=== PATIENT | female | born 2000 ===

== ENCOUNTER → 2022-12-12 | Outpatient (CLI) | payer SELFPAY | END | disposition home or self-care (01) | LOC: LAB SHORT 16:15 | DX: R30.0 Dysuria (principal) | CPT/HCPCS: 87077; 87086; 87186 ==

== ENCOUNTER → 2025-02-19 | Outpatient (CLI) | payer BC, OTHER ==
[2025-02-22 18:19] LABS: C. TRACHOMATIS BY TMA,THINPREP Negative (Negative); N. GONORRHOEAE BY TMA,THINPREP Negative (Negative); SPECIMEN SOURCE Cervical
== END | disposition home or self-care (01) ==
LOC: LAB 17:21 → LAB SHORT 17:21
PROVIDERS: Family Medicine
DX: Z01.419 Encounter for gynecological examination (general) (routine) without abnormal findings (principal)
CPT/HCPCS: 87491; 87591; G0123

== ENCOUNTER 2025-04-21 18:48 | Emergency (ER) | payer BC, OTHER ==
[~2025-04-21] VITALS: Ht 152.4 cm; Wt 68.0 kg
[2025-04-21 18:58] VITALS: BP 129/82
[2025-04-21] MEDS ORDERED: Ondansetron 4 MG SoluTab SL ONE (19:00)
== END 2025-04-21 19:56 | disposition home or self-care (01) ==
LOC: ER 18:48 → BC 19:51 → ER 19:56
DX: O99.891 Other specified diseases and conditions complicating pregnancy (principal); R51.9 Headache, unspecified; R10.9 Unspecified abdominal pain; R11.0 Nausea; Z3A.29 29 weeks gestation of pregnancy
CPT/HCPCS: 99283

== ENCOUNTER → 2025-06-10 | Outpatient (CLI) | payer BC, OTHER | END | disposition home or self-care (01) | LOC: LAB SHORT 11:33 → LAB 11:33 | DX: Z34.03 Encounter for supervision of normal first pregnancy, third trimester (principal) | CPT/HCPCS: 87081; 87150 ==

== ENCOUNTER 2025-07-12 19:41 | Inpatient (IN) | payer BC, OTHER ==
[~2025-07-12] VITALS: Ht 152.4 cm; Wt 75.0 kg
[2025-07-12 20:14] VITALS: BP 133/91
[2025-07-12] MEDS ORDERED: FentaNYL 2mcg/ml-Bup 0.1% Epd 250 ML EPI PRN (21:25)
[2025-07-12] MEDS ORDERED: Oxytocin 10 Unit / ML Vial IM PRN (21:25)
[2025-07-12] MEDS ORDERED: Ondansetron HCl 2 MG / ML 2ML Vial IV PRN (21:25)
[2025-07-12] MEDS ORDERED: Tranexamic Acid 100 ML IV SCH (21:25)
[2025-07-12] MEDS ORDERED: ePHEDrine Sulfate 50 MG/ML 1ML Injection XX PRN (21:25)
[2025-07-12] MEDS ORDERED: Carboprost Tromethamine 250 MCG/ML 1ML Amp IM PRN (21:25)
[2025-07-12] MEDS ORDERED: Methylergonovine Maleate 0.2MG / ML 1ML Amp IM PRN (21:25)
[2025-07-12] MEDS ORDERED: OXYTOCIN/RINGER'S LACTATE 500 ML IV SCH (21:25)
[2025-07-12] MEDS ORDERED: OXYTOCIN/RINGER'S LACTATE 500 ML IV PRN (21:25)
[2025-07-12] MEDS ORDERED: FentaNYL Citrate 50 MCG/ML 2 ML Injection IV PRN (21:30)
[2025-07-12 21:46] LABS: BASOPHILS ABSOLUTE AUTO 0.02 K/mm3 (0.00-0.23); BASOPHILS PERCENT AUTO 0 % (0-2); EOSINOPHILS ABSOLUTE AUTO 0.03 K/mm3 (0.00-0.68); EOSINOPHILS PERCENT AUTO 0 % (0-6); Hematocrit 34.8 % (33.0-51.0); Hemoglobin 11.2 g/dL (11.5-16.0); IMMATURE GRAN ABSOLUTE AUTO 0.03 K/mm3 (0.00-0.10); IMMATURE GRAN PERCENT AUTO 0 % (0-1); LYMPHOCYTES ABSOLUTE AUTO 2.55 K/mm3 (0.84-5.20); LYMPHOCYTES PERCENT AUTO 21 % (21-46); MONOCYTES ABSOLUTE AUTO 1.13 K/mm3 (0.16-1.47); MONOCYTES PERCENT AUTO 10 % (4-13); Mean Corpuscular HGB Conc 32.2 g/dL (31.5-36.5); Mean Corpuscular Volume 86 fL (80-100); NEUTROPHILS ABSOLUTE AUTO 8.15 K/mm3 (1.96-9.15); NEUTROPHILS PERCENT AUTO 68 % (41-73); NRBC ABSOLUTE 0.00 K/mm3 (0.00-0.02); NRBC Auto 0.0 /100 WBC (0.0-0.2); Platelet Count 232 K/mm3 (150-400); RDW Coefficient Variation 13.3 % (11.7-14.2); RDW Standard Deviation 41.5 fL (35.1-46.3)
[2025-07-12] MEDS ORDERED: PRENATAL TABLE1 EAC2 PO (21:50)
[2025-07-12 21:53] VITALS: BP 138/99
[2025-07-12 21:55] VITALS: BP 150/100
[2025-07-12 22:10] VITALS: BP 151/109
[2025-07-13] VITALS (50 sets, daily range): BP systolic 117–176; BP diastolic 63–111
[2025-07-14] VITALS (52 sets, daily range): BP systolic 103–219; BP diastolic 63–122
--- NOTE | 2025-07-14 09:04 | NUR ---
07/13/25 1800 Rns went in with Dr Lima to do cervical exam, pt still very apprehensive nad uncomfortable yet agrees to let MD check her, after exam, this RN noted white mucusy discharge that may have had some yeast in it, I asked Dr Lima if that was yeast and she said "No, its just normal vaginal mucus"
--- NOTE | 2025-07-14 09:07 | NUR ---
07/14/25 0830 Kelly Smith CNM in to examine patient and do VE with abdoulaye AROM, pt was agreeable and yet still noticeably uncomfortable with exam, noted to have yeast on her glove and asked pt if she had any symptoms of yeast, which the patient denied. Kelly said that after the patient delivers, she will be sure to order treatment for the yeast infection.
[2025-07-14] MEDS ORDERED: OXYTOCIN/RINGER'S LACTATE 500 ML IV SCH ×3 (10:55→15:50)
[2025-07-14] MEDS ORDERED: Magnesium Sulf 2 GM/Water 50ML 50 ML IV ONE ×2 (13:33→13:50)
[2025-07-14] MEDS ORDERED: FentaNYL Citrate 50 MCG/ML 2 ML Injection IV PRN (13:40)
[2025-07-14] MEDS ORDERED: HYDROmorphone HCl/Pf 1MG SYR IV PRN ×2 (13:40→15:45)
[2025-07-14] MEDS ORDERED: Ondansetron HCl 2 MG / ML 2ML Vial IV PRN ×2 (13:40→15:40)
[2025-07-14] MEDS ORDERED: CeFAZolin Sodium 2,000 MG in NS 100 ML IV PRN (13:55)
[2025-07-14] MEDS ORDERED: FentaNYL Citrate 50 MCG/ML 2 ML Injection ONE (13:56)
[2025-07-14] MEDS ORDERED: Oxytocin 10 Unit / ML Vial ONE ×2 (13:56→14:57)
--- NOTE | 2025-07-14 15:07 | NUR ---
07/14/25 1507 DANDRE ANDREWS VIABLE MALE BORN AT 1446. AT THE [facility] FOR 1 MIN APGARS AND THEN SKIN TO SKIN WITH MOM.
[2025-07-14] MEDS ORDERED: Ketorolac Tromethamine 30mg Vial ONE (15:15)
[2025-07-14] MEDS ORDERED: Magnesium Hydroxide Conc 10 ML UDC PO PRN (15:40)
[2025-07-14] MEDS ORDERED: Carboprost Tromethamine 250 MCG/ML 1ML Amp IM PRN (15:45)
[2025-07-14] MEDS ORDERED: Rho(D) Immune Globulin 300 MCG / SYR IM ONE (15:50)
[2025-07-14] MEDS ORDERED: Ketorolac Tromethamine 30mg Vial IV SCH (16:00)
[2025-07-14 16:22] LABS: BASOPHILS ABSOLUTE AUTO 0.03 K/mm3 (0.00-0.23); BASOPHILS PERCENT AUTO 0 % (0-2); EOSINOPHILS ABSOLUTE AUTO 0.03 K/mm3 (0.00-0.68); EOSINOPHILS PERCENT AUTO 0 % (0-6); Hematocrit 29.9 % (33.0-51.0); Hemoglobin 9.6 g/dL (11.5-16.0); IMMATURE GRAN ABSOLUTE AUTO 0.07 K/mm3 (0.00-0.10); IMMATURE GRAN PERCENT AUTO 0 % (0-1); LYMPHOCYTES ABSOLUTE AUTO 1.87 K/mm3 (0.84-5.20); LYMPHOCYTES PERCENT AUTO 12 % (21-46); MONOCYTES ABSOLUTE AUTO 0.89 K/mm3 (0.16-1.47); MONOCYTES PERCENT AUTO 6 % (4-13); Mean Corpuscular HGB Conc 32.1 g/dL (31.5-36.5); Mean Corpuscular Volume 88 fL (80-100); NEUTROPHILS ABSOLUTE AUTO 12.67 K/mm3 (1.96-9.15); NEUTROPHILS PERCENT AUTO 82 % (41-73); NRBC ABSOLUTE 0.00 K/mm3 (0.00-0.02); NRBC Auto 0.0 /100 WBC (0.0-0.2); Platelet Count 199 K/mm3 (150-400); RDW Coefficient Variation 13.7 % (11.7-14.2); RDW Standard Deviation 43.8 fL (35.1-46.3)
[2025-07-14 16:48] LABS: Alanine Aminotransfer (ALT/SGP 11.0 U/L (12-78); Albumin, Blood 1.9 g/dL (3.4-5.0); Albumin/Globulin Ratio 0.6 (0.8-1.8); Anion Gap 8.0 mmol/L (3-11); Aspartate Aminotrans (AST/SGOT 20.0 U/L (12-37); Bilirubin, Total 0.7 mg/dL (0.1-1.0); Blood Urea Nitrogen 5.0 mg/dL (8-24); CO2, Blood 25.0 mmol/L (21-32); Calcium, Blood 8.2 mg/dL (8.5-10.1); Chloride, Blood 108.0 mmol/L (98-108); Creatinine, Blood 0.52 mg/dL (0.40-1.00); Globulin, Blood 3.2 g/dL (2.2-4.0); Glucose, Blood 76.0 mg/dL (70-99); Potassium, Blood 3.9 mmol/L (3.5-5.5); Sodium, Blood 137.0 mmol/L (136-145); Total Protein, Blood 5.1 g/dL (6.4-8.2)
[2025-07-14] MEDS ORDERED: Rho(D) Immune Globulin 300 MCG / SYR IV ONE (20:55)
[2025-07-15] VITALS (8 sets, daily range): BP systolic 110–139; BP diastolic 73–107
[2025-07-15] MEDS ORDERED: Morphine Sulfate 4 MG/1 ML Injection IV ONE (02:30)
[2025-07-15] MEDS ORDERED: Morphine Sulfate 4 MG/1 ML Injection ONE (02:30)
[2025-07-15 05:41] LABS: BASOPHILS ABSOLUTE AUTO 0.05 K/mm3 (0.00-0.23); BASOPHILS PERCENT AUTO 0 % (0-2); EOSINOPHILS ABSOLUTE AUTO 0.08 K/mm3 (0.00-0.68); EOSINOPHILS PERCENT AUTO 1 % (0-6); Hematocrit 26.7 % (33.0-51.0); Hemoglobin 8.6 g/dL (11.5-16.0); IMMATURE GRAN ABSOLUTE AUTO 0.04 K/mm3 (0.00-0.10); IMMATURE GRAN PERCENT AUTO 0 % (0-1); LYMPHOCYTES ABSOLUTE AUTO 2.51 K/mm3 (0.84-5.20); LYMPHOCYTES PERCENT AUTO 22 % (21-46); MONOCYTES ABSOLUTE AUTO 1.03 K/mm3 (0.16-1.47); MONOCYTES PERCENT AUTO 9 % (4-13); Mean Corpuscular HGB Conc 32.2 g/dL (31.5-36.5); Mean Corpuscular Volume 87 fL (80-100); NEUTROPHILS ABSOLUTE AUTO 7.52 K/mm3 (1.96-9.15); NEUTROPHILS PERCENT AUTO 67 % (41-73); NRBC ABSOLUTE 0.00 K/mm3 (0.00-0.02); NRBC Auto 0.0 /100 WBC (0.0-0.2); Platelet Count 166 K/mm3 (150-400); RDW Coefficient Variation 13.7 % (11.7-14.2); RDW Standard Deviation 42.7 fL (35.1-46.3)
[2025-07-15] MEDS ORDERED: Polyethylene Glycol 3350 17 gm PO SCH (09:00)
[2025-07-15] MEDS ORDERED: Prenatal Vit/FE Fumarate/FA 1 Tab PO SCH (09:00)
--- NOTE | 2025-07-15 10:45 | NUR ---
PATIENT UP TO SHOWER , ZIMMERMAN OUT, LINEN CHANGED
[2025-07-16 03:47] VITALS: BP 124/75
[2025-07-16 08:41] VITALS: BP 123/91
[2025-07-16 13:33] VITALS: BP 129/95
[2025-07-16 19:25] VITALS: BP 154/90
[2025-07-16 21:18] VITALS: BP 142/97
[2025-07-16 21:19] VITALS: BP 137/94
== END 2025-07-16 21:52 | disposition home or self-care (01) | DRG 788 ==
LOC: OBS 19:41 → BC 19:42 → OBS 19:49 → BC 19:50
PROVIDERS: Obstetrics & Gynecology; ADMIT Family Medicine
PROC: 10D00Z1 Extraction of Products of Conception, Low, Open Approach (ICD-10-PCS; principal; 2025-07-12)
PROC: 3E0234Z Introduction of Serum, Toxoid and Vaccine into Muscle, Percutaneous Approach (ICD-10-PCS; 2025-07-12)
PROC: 3E03329 Introduction of Other Anti-infective into Peripheral Vein, Percutaneous Approach (ICD-10-PCS; 2025-07-12)
DX: O48.0 Post-term pregnancy (principal); Z3A.41 41 weeks gestation of pregnancy; Z37.0 Single live birth; Z67.11 Type A blood, Rh negative; O99.344 Other mental disorders complicating childbirth; F41.9 Anxiety disorder, unspecified; O99.892 Other specified diseases and conditions complicating childbirth; R03.0 Elevated blood-pressure reading, without diagnosis of hypertension; O99.02 Anemia complicating childbirth; D50.9 Iron deficiency anemia, unspecified; Z79.899 Other long term (current) drug therapy
CPT/HCPCS: 36415; 51702; 80053; 85025; 85460; 86850; 86900; 86901; 86923; A9270; J1885; J2270; J2590; J2791; J3010; J3475; J7120

== ENCOUNTER → 2025-08-04 | Outpatient (CLI) | payer BC, OTHER ==
[~2025-08-04] MED LIST: PRENATAL TABLE1 EAC2 PO
[2025-08-04 16:00] LABS: Source, Urine Clean Catch
[2025-08-04 17:58] LABS: Bilirubin, Urine Neg (Neg); Color, Urine Yellow (P-Yellow); Glucose Qualitative, Urine Neg (Neg); Ketones, Urine Neg (Neg); Leukocyte Esterase, Urine 3+ (Neg); Protein, Urine 3+ (Neg); Specific Gravity, Urine 1.020 (1.003-1.022); Urobilinogen, Urine NORM (Normal)
[2025-08-04 18:55] LABS: White Blood Cells, Urine TNTC /hpf (0-5)
== END ==
LOC: LAB 15:59 → LAB SHORT 15:59
PROVIDERS: Family Medicine
DX: R30.0 Dysuria (principal)
CPT/HCPCS: 81001; 87086

== ENCOUNTER → 2025-08-07 | Outpatient (CLI) | payer BC, OTHER ==
[2025-08-07 20:27] LABS: Bacterial Vaginosis PCR Negative (NEGATIVE); Candida Group, PCR NOT DETECTED (NOT DETECT); Candida glabrata-krusei, PCR NOT DETECTED (NOT DETECT)
== END ==
LOC: LAB SHORT 18:36 → LAB 18:36
PROVIDERS: Family Medicine
DX: Z11.3 Encounter for screening for infections with a predominantly sexual mode of transmission (principal); R30.0 Dysuria
CPT/HCPCS: 81515; 87086